=== PATIENT | female | born 1985 | race Caucasian/White ===

== ENCOUNTER 2025-01-30 15:54 | Outpatient (AMB) | payer OTHER, SELFPAY ==
[2025-01-30 15:57] VITALS: BP 100/62; PULSE 104; O2SAT 96; BMI 21.8
--- NOTE | 2025-01-30 15:57 | HO.NEPHOV ---
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 Symptoms include blood pressure fluctuations, breathlessness, and episodes of leg weakness. Blood pressure monitoring shows improvement when supine, with increased heart rate. The patient has a history of bipolar disorder, previously managed with lithium, now discontinued. No complications from lithium were reported. History of kidney stones with no recent symptoms. Reports sporadic facial and hand swelling. Smokes one pack per day, no alcohol use. 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 Used to be on Midodrine. 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 Review of Systems Const Denies anorexia, Denies fever(s) and Denies weakness Eyes Denies blurry vision Card Denies no additional complaints and Denies dyspnea Resp Reports no additional complaints, Reports cough and Denies dyspnea GI Denies melena and Denies diarrhea Denies hematuria Musc Denies tingling Skin/Breast Denies rash Neuro Denies focal weakness, Denies tingling, Denies tremor(s) and Denies weakness Physical Exam Vital Signs: Last Vital Signs Pulse 104 H 01/30/25 15:57 BP 100/62 01/30/25 15:57 Pulse Ox 96 01/30/25 15:57 Oxygen Delivery Method Room Air 01/30/25 15:57 BMI result Body Mass Index 21.8 Comfortable Neck supple no JVD. Lungs entry equal no rales. Heart S1-S2 heard no gallop or rub. Abdomen soft nontender. Neuro alert awake oriented. No asterixis. Extremities no edema. Results Reviewed Nephrology Results: Hgb, (12.0-16.0) 12.8 g/dL 09/30/18 WBC, (4.8-10.8) 7.9 X10*3/uL 09/30/18 Plt Count, (160-400) 328 X10*3/uL 09/30/18 Sodium, (135-145) 138 MMOL/L 09/30/18 Potassium, (3.3-5.1) 4.1 MMOL/L 09/30/18 Chloride, (96-108) 106 MMOL/L 09/30/18 BUN, (9-16) 10 MG/DL 09/30/18 Creatinine, (0.5-1.4) 0.92 MG/DL 09/30/18 Calcium, (8.6-10.2) 9.5 mg/dL 09/30/18 PTH Intact, (14-64) 61 pg/mL 09/30/18 Urine Protein, (NEG - TRACE) NEG 06/03/18 Assessment & Plan Assessment & Plan (1) Hypotension: Code(s): I95.9 - Hypotension, unspecified Category: Medical Plan Plan 1. Autonomic Dysfunction With Orthostatic Hypotension - Conduct 24-hour blood pressure monitoring. - Use compression stockings and elevate head of bed. - Increase dietary salt intake. - Adjust Midodrine dosage as needed. Check Cortisol; PA/PRA 2. Bipolar Disorder - Discontinued lithium, monitor psychiatric symptoms. 3. History Of Kidney Stones - No recent symptoms, monitor for recurrence. Orders: Orders AMB 24 HR B/P Monitor PLACEMENT Today I10 - Essential (primary) hypertension, I95.9 - Hypotension, unspecified Cortisol, Free Today I95.9 - Hypotension, unspecified Renin Today I95.9 - Hypotension, unspecified Aldost/Renin Today I95.9 - Hypotension, unspecified Basic Metabolic Panel Today I95.9 - Hypotension, unspecified TSH reflex Free T4 Today I95.9 - Hypotension, unspecified Aldosterone Today I95.9 - Hypotension, unspecified Coding Level of Care Code New Pt Level 4 (05534) Diagnoses Hypotension I95.9
--- OUTSIDE RECORDS SUMMARY | 2025-01-30 18:38 | XMS_ITS ---
Author Name [facility] Organization Unknown Care Team Organization Name Specialty Phone Email Start Date End Da te [facility] Martín Neal Primary Care 09/29/202201/10
--- OUTSIDE RECORDS SUMMARY | 2025-01-30 18:38 | XMS_ITS | Clinical Summary ---
Author Organization [address] Address [address] [place] [id number] Phone Care Team Providers Care Electron Beam Machine Welder Setter Name Role Phone Raheel Patel MD Primary Care Provider [phone] Allergies Active Allergy Reactions Criticality Noted Date Comments Clindamycin Hcl Diarrhea,Nausea And Vomiting Medications metoprolol succinate (TOPROL-XL) 25 mg 24 hr tablet Take 0.5 Tablets by mouth daily for 360 days. 4 Active copper (PARAGARD) 380 square mm IUD by Intrauterine route. Active QUEtiapine (SEROquel) 100 mg tablet Take 1 Tab by mouth 2 times daily. Per Psych: 50-150 mg 8 Active lamoTRIgine (LaMICtal) 200 mg tablet Take 1 tablet (200 mg total) by mouth 1 (one) time each day. 7 Active Active Problems Problem Noted Date Diagnosed Date POTS (postural orthostatic tachycardia syndrome) 06/22/2023 Dyspnea on exertion 03/18/2022 Lightheadedness 03/18/2022 CKD (chronic kidney disease) stage 2, GFR 60-89 ml/min 09/30/2019 Overview (03/11/2024): [place] Nephropathy Follows with (Athreya) 6 mth basis Psoriasis 07/06/2019 Bipolar disorder (CMS/HCC V24, CMS/HCC V28) 03/01/2018 Kidney stones 02/16/2013 Anxiety 06/02/2007 Depression 04/06/2006 Esophageal reflux 04/06/2006 Immunizations Name Administration Dates Next Due DTP 02/22/1986, 5,1984,03/25 HPV, Quadrivalent 04/19/2008,10/04/2007,08/04/19 08 Hepatitis B (Dxtwybv-Q-Mgovp , Recombivax HB-Adult) 19yo and older 10/02/1995,05/04/1995,03/31/1995 Influenza Quadravalent, MDCK , 0.5ml, preservative free (Flucelvax) 6mo and older 03/12/2023 Influenza Quadravalent, MDCK , 0.5ml, with preservative (Flucelvax) 6mo and older 02/07/2022 Influenza trivalent, 0.5mL, preservative free (Fluarix; FluLaval; Fluzone) ages 6mo and older (Afluria) 3 years and older 03/15/2021 MMR, measles mumps and rubel la Live (Priorix; M-M-R II) 12mo and older 11/01/1994,09/12/1988 Meningococcal Polysaccharide 10/12/2001 OPV 08/23/1988, 6,1984,05/25,1984 Td Tetanus diptheria (Tdvax) 7yo and older 02/13/2004,07/27/1998 Tdap Tetanus diptheria acell ular pertussis (Boostrix; Adacel) 7yo and older 01/04/2008 Surgical History Surgery Date Site/Laterality Comments TONSILLECTOMY PROCEDURE: HISTORICAL TONSILLECTOMY CHOLECYSTECTOMY 2009 PROCEDURE: HISTORICAL CHOLECYSTECTOMY MASTECTOMY 2014 Bilateral PROCEDURE: HISTORICAL MASTECTOMY; COMMENT: for BrCA positive, reconstruction WISDOM TOOTH EXTRACTION PROCEDURE: HISTORICAL WISDOM TEETH EXTRACTION LITHOTRIPSY PROCEDURE: HISTORICAL LITHOTRIPSY FOOT SURGERY Bilateral PROCEDURE: HISTORICAL FOOT SURGERY; COMMENT: b/l exostectomy 1st MT/shelbyeiform jts Medical History Medical History Date Comments Anxiety 06/02/2007 DX:Anxiety Bipolar disorder (CMS/HCC V2 4, CMS/HCC V28) 07/31/2017 DX:Bipolar disorder ([facility]) Depressive disorder 04/06/2006 DX:Depressiv e disorder Esophageal reflux 04/06/2006 DX:Esophageal reflux Gene mutation 10/27/2014 DX:Gene mutation ; COMMENT: Had prophylactic mastectomies. Prophylactic removal of ovaries recommended, ideally age 35 to 40 History of abnormal cervical Pap smear 02/26/2008 DX:History of abnormal cervi chloé Pap smear; COMMENT: 2003, HPV positive Kidney stones 02/16/2013 DX:Kidney stones Psoriasis 07/06/2019 DX:Psoriasis Tobacco use 07/06/2019 DX:Tobacco use Family History Medical History Relation Name Comments Lung cancer Aunt maternal; decea sed, late 50s; smoker Lung cancer Father , neuro fibromatosis;non smoker, melanoma Emphysema Maternal Grandfather at age 73 Breast cancer Maternal Grandmother younge r than age 45 Lung cancer Mother 42; smoker Colon cancer Other 1 maternal first cousin Breast cancer Other 2 maternal first cousin Other: lung disease Paternal Grandfather at age 63 Other: Other Paternal Grandmother in her late 70s Lung cancer Uncle Ovarian cancer Neg Hx Relation Name Status Comments Aunt Father Maternal Grandfather Maternal Grandmother Mother Other 1 Other 2 Paternal Grandfather Paternal Grandmother Sister Alive Uncle Social History Tobacco Use Types Packs/Day Years Used Date Smoking Tobacco: Every Day Cigarettes Smokeless Tobacco: Never Tobacco Cessation:Ready to Q uit: Not Asked; Counseling Given: Not Answered Alcohol Use Standard Drinks/Week Comments Not Currently 0 (1 standard drink = 0.6 oz pur e alcohol) Comments Unknown Sex and Gender Information Value Date Recorded Sex Assigned at Not on file Legal Sex Female 4:06 PM EST Gender Identity Not on file Sexual Orientation Not on file 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 Industry 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 Date 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 Not on file Not on file Not on file Obstetrics History Last Filed Vital Signs Vital Sign Reading Time Taken Comments Blood Pressure 134/56 06/19/2023 1:12 PM EST Pulse 102 06/19/2023 1:12 PM EST Temperature 36.2 C (97.2 F) 04/27/2024 4:33 PM EST Respiratory Rate 14 04/27/2024 4:33 PM EST Oxygen Saturation 97% 04/27/2024 4:33 PM EST Inhaled Oxygen Concentration - - Weight 55.4 kg (122 lb 1.6 oz) 04/27/2024 4:33 P M EST Height 162.6 cm (5' 4 ) 04/27/2024 4:33 PM EST Body Mass Index 20.96 04/27/2024 4:33 PM EST Plan of Treatment Upcoming Encounters Date Type Department Care Team ( Contact Info) Description 06/02/2025 4:00 PM EST Office Visit Adult Medicine [facility] [address] [place], [place] [phone] Raheel Patel MD [address] [place] [address] Health Maintenance Due Date Last Done Comments Pneumococcal Vaccine: Pediatrics (0 to 5 Years) and At-Risk Patients (6 to 49 Years) (1 of 2 - PCV) 02/17/2003 DTaP,Tdap,and Td Vaccines (7 - Td or Tdap) 01/03/2018 01/04/2008, 02/13/2004, 07/27/1998, Additional history exists Cervical Cancer Screening: Pap Smear 07/26/2018 07/27/2015, 02/22/2013 COVID-19 Vaccine (3 - Pfizer risk series) 2021 01/21/2021, 12/31/2020 Depression Screening 05/25/2024 Influenza Vaccine (#1) 2025 , 03/12/2023, 02/07/2022, Additional history exists Social Influencers of Health Screening 04/27/2025 04/27/2024 Cholesterol Screening (Lipid Panel) 04/15/2029 04/15/2024, 07/01/2022 IPV Vaccines Completed 08/23/1988, 05/1985, 1984, Additional history exists MMR Vaccines Completed 11/01/1994, 09/12/1988 Hepatitis B Vaccines Completed 10/02/1995, 05/04/1995, 03/31/1995 Meningococcal ACWY Vaccine Aged Out 10/12/2001 N o longer eligible based on patient's age to complete this topic HPV Vaccines Completed 04/19/2008, 09/22, 08/04/2007 HIV Screening Completed 07/13/2018 Hepatitis C Screening Completed 07/13/2018 HIB Vaccines Aged Out No longer eligi ble based on patient's age to complete this topic Hepatitis A Vaccines Aged Out No long er eligible based on patient's age to complete this topic Meningococcal B Vaccine Aged Out No l onger eligible based on patient's age to complete this topic RSV Immunization Patients Under 20 months Aged Out No longer eligible based on patient's age to complete this topic Varicella Vaccines Aged Out No longer eligible based on patient's age to complete this topic Procedures Procedure Name Priority Date/Time Associated Diagnosis Comments LIPID PANEL WITH REFLEX TO DIRECT LDL Routine 04/15/2024 2:46 PM EST Screening for lipid disorders HEPATITIS C SCREENING Routine 07/13/2018 HIV SCREENING Routine 07/13/2018 PAP SMEAR Routine 07/27/2015 from Last 3 Months or Most Recently Relevant to Health Maintenance Results * (ABNORMAL) Lipid panel with reflex to direct LDL (04/15/2024 2:46 PM EST) Cholesterol 210(H) 0 - 200 mg/dL LAB CHEMISTRY METHOD 04/15/2024 7:06 PM [facility] Triglycerides 139 0 - 150 mg/dL LAB CHEMISTRY METHOD 04/15/2024 7:06 PM [facility] HDL 53 >=40 mg/dL LAB CHEMISTRY METHOD 04/15/2024 7:06 PM [facility] LDL Calculated 129(H) 0 - 100 mg/dL LAB CHEMISTRY METHOD 04/15/2024 7:06 PM [facility] VLDL Cholesterol Chloé 27.8 mg/dL LAB CHEMISTRY METHOD 04/15/2024 7:06 PM [facility] Non HDL Chol. (LDL+VLDL) 157(H) <145 mg/dL LAB CHEMISTRY METHOD 04/15/2024 7:06 PM [facility] Chol/HDL Ratio 4.0 0.0 - 4.4 LAB CHEMISTRY METHOD 04/15/2024 7:06 PM [facility] Blood Venous blood specimen / Unknown Venipuncture / Unknown 04/15/2024 2:46 PM EST 04/15/2024 2:46 PM EST Ryanne MCWILLIAMS LAB BLOOD ORDERABLES Fi nal Result [facility] [address] [place] [address], * HIV Screening (07/13/2018) HIV Screening abstracted Historical Provider HEALTH MAINTENANCE Final Result * Hepatitis C Screening (07/13/2018) Pathologist [facility] Hepatitis C Screening abstracted Historical Provider HEALTH MAINTENANCE Final Result * Pap Smear (07/27/2015) Pathologist [facility] Pap smear no interpretation , abstracted Historical Provider HEALTH MAINTENANCE Final Result from Last 3 Months or Most Recently Relevant to Health Maintenance Insurance [facility] Care Teams Electron Beam Machine Welder Setter Relationship Specialty Start Date End Date Raheel Patel MD PCP - General Internal Medicine 09/09/21
== END 2025-01-30 16:18 | disposition home or self-care (01) ==
LOC: HO.HKA 15:55
PROVIDERS: PCP Internal Medicine; Visit Provider Internal Medicine Hypertension Specialist
DX: I95.9 Hypotension, unspecified (principal)
CPT/HCPCS: 99204

== ENCOUNTER → 2025-01-30 15:54 | Outpatient (BNVA) | payer OTHER, SELFPAY | PROVIDERS: PCP Internal Medicine; Visit Provider Internal Medicine Hypertension Specialist | DX: I95.9 Hypotension, unspecified (principal); F17.210 Nicotine dependence, cigarettes, uncomplicated; Z13.89 Encounter for screening for other disorder ==

== ENCOUNTER 2025-02-21 15:48 | Outpatient (AMB) | payer OTHER, SELFPAY ==
[2025-02-21 15:54] VITALS: BP 100/72
--- NOTE | 2025-02-21 15:54 | HO.NEPHOV ---
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 Symptoms include blood pressure fluctuations, breathlessness, and episodes of leg weakness. Blood pressure monitoring shows improvement when supine, with increased heart rate. The patient has a history of bipolar disorder, previously managed with lithium, now discontinued. No complications from lithium were reported. History of kidney stones with no recent symptoms. Reports sporadic facial and hand swelling. Smokes one pack per day, no alcohol use. 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 Used to be on Midodrine. 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 - Episodes of dizziness occur sporadically, especially at night. - Blood pressure monitoring shows nocturnal hypotension with normal daytime readings. - Current medications include lamotrigine and pityepin; lithium has been discontinued. - Cortisol levels and other tests are normal. Underwent 24 hr ABPM Physical Exam Vital Signs: Last Vital Signs BP 100/72 02/21/25 15:54 Comfortable Neck supple no JVD. Lungs entry equal no rales. Heart S1-S2 heard no gallop or rub. Abdomen soft nontender. Neuro alert awake oriented. No asterixis. Extremities no edema. Office Procedures 24 B/P Monitor Interpretation Details: Bp acceptable Nocturnal readings are low No white coat effect CPT: 23303 24 Hour Blood Pressure Monitor Reading Procedure code (CPT) selection complete Results Reviewed Nephrology Results: Hgb, (12.0-16.0) 12.8 g/dL 09/30/18 WBC, (4.8-10.8) 7.9 X10*3/uL 09/30/18 Plt Count, (160-400) 328 X10*3/uL 09/30/18 Sodium, (135-145) 138 MMOL/L 09/30/18 Potassium, (3.3-5.1) 4.1 MMOL/L 09/30/18 Chloride, (96-108) 106 MMOL/L 09/30/18 BUN, (9-16) 10 MG/DL 09/30/18 Creatinine, (0.5-1.4) 0.92 MG/DL 09/30/18 Calcium, (8.6-10.2) 9.5 mg/dL 09/30/18 PTH Intact, (14-64) 61 pg/mL 09/30/18 Urine Protein, (NEG - TRACE) NEG 06/03/18 Assessment & Plan Assessment & Plan (1) Hypotension: Code(s): I95.9 - Hypotension, unspecified Category: Medical Plan Plan 1. Autonomic Dysfunction With Orthostatic Hypotension - 24-hour blood pressure monitoring revealed well controlled BP with low nocturnal readings. - Use compression stockings and elevate head of bed. - Increase dietary salt intake. - Add Midodrine 2.5 mg PO PRN 2. h/o Bipolar Disorder - Discontinued lithium, monitor psychiatric symptoms. 3. History Of Kidney Stones - No recent symptoms, monitor for recurrence. Orders: Orders AMB 24 HR B/P Monitor INTERPRETATION 02/21/25 I10 - Essential (primary) hypertension Medications: New midodrine 2.5 mg PO DAILY PRN 30 tabs 3RF Low BP Coding Level of Care Code Est Pt Level 4 (20270) Diagnoses Hypotension I95.9 CPT Codes - CPT: 70194 24 Hour Blood Pressure Monitor Reading ([id number])
--- OUTSIDE RECORDS SUMMARY | 2025-02-21 16:58 | XMS_ITS | Clinical Summary ---
Author Organization [address] Address [address] [place] [phone] Phone Care Team Providers Care Mail Manager Name Role Phone Raheel Patel MD Primary Care Provider [phone] Allergies Active Allergy Reactions Criticality Noted Date [...] 2, GFR 60-89 ml/min 09/30/2019 Overview (03/11/2024): [place] Nephropathy Follows with (Athreya) 6 mth basis Psoriasis 07/06/2019 Bipolar disorder (CMS/HCC V24, CMS/[facility] V28) 03/01/2018 Kidney stones 02/16/2013 Anxiety 06/02/2007 Depression 04/06/2006 Esophageal reflux 04/06/2006 Immunizations Immunization Administration Dates Next Due DTP 02/22/1986, 5,1984,03/25 HPV, Quadrivalent 04/19/2008,10/04/2007,08/04/19 08 Hepatitis B (Dsvytpu-X-Nfmhu , Recombivax HB-Adult) 19yo and older 10/02/1995,05/04/1995,03/31/1995 [...] V2 4, CMS/HCC V28) 07/31/2017 DX:Bipolar disorder ([facility]) Depressive disorder 04/06/2006 DX:Depressiv e disorder Esophageal [...] Date 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 Triglycerides 139 0 - 150 mg/dL LAB CHEMISTRY METHOD 04/15/2024 7:[address] [facility] HDL 53 >=40 mg/dL LAB CHEMISTRY METHOD 04/15/2024 7:[address] [facility] LDL Calculated 129(H) 0 - 100 mg/dL LAB CHEMISTRY METHOD 04/15/2024 7:[address] [facility] VLDL Cholesterol Chloé 27.8 mg/dL LAB CHEMISTRY METHOD 04/15/2024 7:[address] [facility] Non HDL Chol. (LDL+VLDL) 157(H) <145 mg/dL LAB CHEMISTRY METHOD 04/15/2024 7:[address] [facility] Chol/HDL Ratio 4.0 0.0 - 4.4 LAB CHEMISTRY METHOD 04/15/2024 7:[address] [facility] Blood Venous blood specimen / Unknown Venipuncture / Unknown 04/15/2024 2:46 PM EST 04/15/2024 2:46 PM EST Ryanne MCWILLIAMS LAB BLOOD ORDERABLES Fi nal Result [facility] [address] [place] [address], [place] [phone] * HIV Screening (07/13/2018) HIV Screening abstracted Historical Provider MD HEALTH MAINTENANCE Final Result * Hepatitis C Screening (07/13/2018) Hepatitis C Screening abstracted Historical Provider HEALTH MAINTENANCE Final Result * Pap Smear (07/27/2015) Pap smear no interpretation , abstracted Historical Provider HEALTH MAINTENANCE Final Result from Last 3 Months or Most Recently Relevant to Health Maintenance Insurance [facility] Care Teams Mail Manager Relationship Specialty Start Date End Date Raheel Patel MD PCP - General Internal Medicine 09/09/21
== END 2025-02-21 16:06 | disposition home or self-care (01) ==
LOC: HO.HKA 15:48
PROVIDERS: PCP Internal Medicine; Visit Provider Internal Medicine Hypertension Specialist
DX: I95.9 Hypotension, unspecified (principal)
CPT/HCPCS: 93790; 99214

== ENCOUNTER → 2025-02-21 15:48 | Outpatient (BNVA) | payer OTHER, SELFPAY | PROVIDERS: PCP Internal Medicine; Visit Provider Internal Medicine Hypertension Specialist | DX: I95.9 Hypotension, unspecified (principal) | CPT/HCPCS: 93786; 93788 ==